=== PATIENT | female | born 1945 | race Caucasian/White ===

== ENCOUNTER 2020-05-10 10:11 | Outpatient (REF) | payer MEDICARE, OTHER, SELFPAY | END 2020-05-10 10:12 | disposition home or self-care (01) | LOC: HO.WFDLDS 10:11 | PROVIDERS: Visit Provider Internal Medicine | DX: Z20.822 Contact with and (suspected) exposure to COVID-19 (principal) | CPT/HCPCS: 36415; C9803; U0003 ==

== ENCOUNTER 2020-06-07 12:00 | Outpatient (REF) | payer MEDICARE, OTHER, SELFPAY | END 2020-06-07 12:01 | disposition home or self-care (01) | LOC: HO.WFDLDS 12:00 | PROVIDERS: Visit Provider Internal Medicine | DX: Z20.822 Contact with and (suspected) exposure to COVID-19 (principal) | CPT/HCPCS: 36415; C9803; U0003; U0005 ==